=== PATIENT | male | born 1965 | race Caucasian/White ===

== ENCOUNTER 2018-02-28 14:36 | Emergency (ER) | payer OTHER ==
[~2018-02-28] VITALS: Ht 182.9 cm; Wt 113.4 kg
[2018-02-28 15:38] VITALS: BP 198/117
== END 2018-02-28 15:39 | disposition home or self-care (01) ==
LOC: M.ERS 14:36
DX: S01.01XA Laceration without foreign body of scalp, initial encounter (principal); W22.8XXA Striking against or struck by other objects, initial encounter; Y93.89 Activity, other specified; Y92.89 Other specified places as the place of occurrence of the external cause; Y99.8 Other external cause status

== ENCOUNTER 2018-03-05 14:42 | Emergency (ER) | payer OTHER ==
[~2018-03-05] VITALS: Ht 182.9 cm; Wt 113.4 kg
[2018-03-05 14:48] VITALS: BP 159/106
== END 2018-03-05 15:01 | disposition home or self-care (01) ==
LOC: M.ERS 14:42
DX: S01.01XD Laceration without foreign body of scalp, subsequent encounter (principal); X58.XXXD Exposure to other specified factors, subsequent encounter